=== PATIENT | female | born 1970 | race Caucasian/White ===

== ENCOUNTER 2019-06-10 18:30 | Emergency (ER) | payer OTHER ==
[~2019-06-10] VITALS: Ht 157.5 cm; Wt 69.9 kg
[~2019-06-10 18:30] MED LIST: PAXIL10 MG/5 ML
== END 2019-06-10 21:14 | disposition home or self-care (01) ==
LOC: ER 18:30
DX: B34.9 Viral infection, unspecified (principal); R50.9 Fever, unspecified